=== PATIENT | male | born 1955 | race Caucasian/White ===

== ENCOUNTER 2020-03-21 03:41 | Emergency (ER) | payer MEDICARE, OTHER ==
[2020-03-21 03:54] LABS: BASOPHIL 0.8 % (0-2); EOSINOPHIL 2.5 % (0-7); HCT 33.7 % (42.0-52.0); HGB 10.5 g/dl (13.2-18.0); LYMPHOCYTE 16.5 % (15-48); MCH 26.6 pg (25.0-31.0); MCHC 31.2 g/dL (32.0-36.0); MCV 85.5 fL (78.0-100.0); MONOCYTE 10.2 % (0-12); MPV 10.1 fL (6.0-9.5); NEUTROPHIL 69.5 % (41-80); NRBC 0; PLT 210 K/uL (150-400); RBC 3.94 M/uL (4.70-6.00); RDW 16.3 % (11.5-14.0); WBC 7.6 K/uL (4.0-10.5)
[2020-03-21 04:13] LABS: INR 1.17 (0.9-1.2); PROTHROMBIN TIME 14.1 SECONDS (11.4-13.6); PTT 23.9 SECONDS (22.2-34.7)
[2020-03-21 04:17] LABS: ALBUMIN 3.2 g/dL (3.4-5.0); ALKALINE PHOSHATASE 90 U/L (46-116); ALT 32 U/L (16-63); AMYLASE 57 U/L (25-115); AST 19 U/L (15-37); BILIRUBIN - TOTAL 0.9 mg/dL (0.2-1.0); BUN 28 mg/dL (7-18); BUN/CREAT RATIO (CALC) 25.9 RATIO; CHLORIDE 101 mmol/L (98-107); CO2 (BICARBONATE) 26 mmol/L (21-32); CREATININE 1.08 mg/dL (0.67-1.17); GLOBULIN (CALCULATION) 3.7 g/dL; GLUCOSE 178 mg/dL (74-106); LIPASE 176 U/L (73-393); TOTAL PROTEIN 6.9 g/dL (6.4-8.2)
[2020-03-21 06:01] LABS: HCT 28.8 % (42.0-52.0)
[2020-03-21 10:06] LABS: HGB 8.6 g/dL (13.2-18.0)
== END 2020-03-21 10:58 | disposition other institution (70) ==
LOC: FER 03:41
PROVIDERS: Emergency Medicine; Emergency Medicine Emergency Medical Services
DX: K92.0 Hematemesis (principal); K44.9 Diaphragmatic hernia without obstruction or gangrene; I10 Essential (primary) hypertension; Z95.5 Presence of coronary angioplasty implant and graft; Z87.19 Personal history of other diseases of the digestive system; Z79.02 Long term (current) use of antithrombotics/antiplatelets; Z79.82 Long term (current) use of aspirin; Z88.0 Allergy status to penicillin; Z79.899 Other long term (current) drug therapy; Z20.822 Contact with and (suspected) exposure to COVID-19
CPT/HCPCS: 36415; 71045; 80053; 82150; 83690; 84484; 85014; 85018; 85025; 85610; 85730; 86850; 86900; 86901; 86922; 93005; C9113; G0480; J2354; J2405; J7030; Q9967; U0002

== ENCOUNTER 2021-10-04 17:06 | Emergency (ER) | payer OTHER ==
[2021-10-04 19:24] LABS: BASOPHIL 0.9 % (0-2); HCT 40.8 % (42.0-52.0); MCH 33.7 pg (25.0-31.0); MCHC 34.3 g/dL (32.0-36.0); MCV 98.1 fL (78.0-100.0); MONOCYTE 8.7 % (0-12); MPV 9.7 fL (6.0-9.5); NEUTROPHIL 58.9 % (41-80); NRBC 0; PLT 113 K/uL (150-400); RBC 4.16 M/uL (4.70-6.00); RDW 12.6 % (11.5-14.0); WBC 6.5 K/uL (4.0-10.5)
[2021-10-04 19:48] LABS: BUN/CREAT RATIO (CALC) 13.1 RATIO; CREATININE 0.84 mg/dL (0.67-1.17); POTASSIUM 3.9 mmol/L (3.5-5.1)
== END 2021-10-04 22:12 | disposition home or self-care (01) ==
LOC: FER 17:06
PROVIDERS: Nurse Practitioner Family
DX: F10.129 Alcohol abuse with intoxication, unspecified (principal); Y90.8 Blood alcohol level of 240 mg/100 ml or more
CPT/HCPCS: 36415; 70450; 72125; 72128; 72131; 80048; 85025; G0480; J3411; J3475; J7030